=== PATIENT | female | born 1935 | race Hispanic/Latino ===

== ENCOUNTER 2017-05-08 18:09 | Emergency (ER) | payer OTHER ==
[~2017-05-08 18:09] MED LIST: OMEP20TA25 PO
[2017-05-08 19:36] LABS: BILIRUBIN,URINE Negative (NEGATIVE); COLOR,URINE Yellow (YELLOW); GLUCOSE, URINE (UA) Negative (NEGATIVE); KETONES,URINE Negative (NEGATIVE); LEUKOCYTE ESTERASE ,URINE Small (NEGATIVE); NITRATE,URINE Negative (NEGATIVE); OCCULT BLOOD,URINE Negative (NEGATIVE); PH,URINE 7.5 (5.0-8.0); PROTEIN,URINE Negative (NEGATIVE); UROBILINOGEN,URINE 0.2 mg/dL (0.2-1.0)
[2017-05-08 19:41] LABS: APPEARANCE,URINE CLEAR (CLEAR)
[2017-05-08 19:51] LABS: BACTERIA,URINE Moderate /HPF (None Seen); RBC,URINE None Seen /HPF (0-1); SQUAMOUS EPITHELIAL CELL,UR None Seen /LPF (0-2); WBC,URINE 0-1 /HPF (0-1)
[2017-05-08] MEDS ORDERED: LORAZEPAM 1 MG TABLET ONE (20:17)
== END 2017-05-08 23:27 | disposition home or self-care (01) ==
LOC: EDH 18:09
DX: I10 Essential (primary) hypertension (principal); F41.9 Anxiety disorder, unspecified
CPT/HCPCS: 81001; 93005

== ENCOUNTER 2017-05-14 10:16 | Inpatient (IN) | payer OTHER ==
[~2017-05-14] VITALS: Ht 149.9 cm; Wt 129.3 kg
[2017-05-14] MEDS: SODIUM CHLORIDE 0.9% 1000ML 1,000 ML IV SCH ×2 (08:23→18:11)
[2017-05-14 10:35] LABS: BASOPHILS % (AUTO) 0.2 % (0.0-5.0); EOSINOPHILS % (AUTO) 0.1 % (0.0-8.0); HEMATOCRIT 34.3 % (36-48); LYMPHOCYTES % (AUTO) 20.3 % (21.0-51.0); MEAN CORPUSCULAR HEMOGLOBIN 30.5 pg (27.0-33.0); MEAN CORPUSCULAR HGB CONC 35.5 g/dL (32.0-36.0); MEAN CORPUSCULAR VOLUME 85.9 fL (79-99); MONOCYTES % (AUTO) 8.1 % (3.0-13.0); NEUTROPHILS % (AUTO) 71.3 % (40.0-77.0); PLATELET COUNT (AUTO) 162 K/uL (130-400); RED CELL DISTRIBUTION WIDTH 12.6 % (11.0-15.5); WHITE BLOOD COUNT (AUTO) 6.7 K/uL (4.8-10.8)
[2017-05-14 10:47] LABS: ALBUMIN 3.9 g/dL (3.5-5.0); CREATININE 0.8 mg/dL (0.5-1.5); POTASSIUM 3.3 mmol/L (3.5-5.1); TOTAL PROTEIN, SERUM 7.5 g/dL (6.0-8.3)
[2017-05-14 10:49] LABS: APPEARANCE,URINE Cloudy (CLEAR); BILIRUBIN,URINE Negative (NEGATIVE); COLOR,URINE Yellow (YELLOW); GLUCOSE, URINE (UA) Negative (NEGATIVE); KETONES,URINE Negative (NEGATIVE); LEUKOCYTE ESTERASE ,URINE Moderate (NEGATIVE); NITRATE,URINE Positive (NEGATIVE); OCCULT BLOOD,URINE Negative (NEGATIVE); PH,URINE 7.5 (5.0-8.0); PROTEIN,URINE Negative (NEGATIVE); UROBILINOGEN,URINE 0.2 mg/dL (0.2-1.0)
[2017-05-14] MEDS ORDERED: SODIUM CHLORIDE 0.9% 1000ML 1,000 ML IV ONE ×2 (10:59→12:29)
[2017-05-14] MEDS ORDERED: CEFTRIAXONE SODIUM 1 GM ONE (11:00)
[2017-05-14 11:20] LABS: BACTERIA,URINE Many /HPF (None Seen)
[2017-05-14 11:21] LABS: RBC,URINE None Seen /HPF (0-1); SQUAMOUS EPITHELIAL CELL,UR 0-2 /LPF (0-2)
[2017-05-14] MEDS ORDERED: POTASSIUM BICARB/CIT AC 25 MEQ TABLET.EFF ONE (12:29)
[2017-05-14 16:00] VITALS: BP 140/65
[2017-05-14 20:00] VITALS: BP 139/61
[2017-05-15] VITALS (9 sets, daily range): BP systolic 137–186; BP diastolic 59–81
[2017-05-15] MEDS: SODIUM CHLORIDE 0.9% 1000ML 1,000 ML IV SCH (02:40)
[2017-05-15] MEDS ORDERED: LIDOCAINE HCL-MPF 1% 2ML VIAL IVP PRN (07:30)
[2017-05-15] MEDS ORDERED: POTASSIUM CHLORIDE 20MEQ/100ML 100 ML IV PRN (07:30)
[2017-05-15] MEDS: CEFTRIAXONE SODIUM 1 GM IVP SCH (08:23)
[2017-05-15] MEDS: AMLODIPINE BESYLATE 5 MG TAB PO SCH (08:24)
[2017-05-15] MEDS: LISINOPRIL 20 MG TABLET PO SCH (08:24)
[2017-05-15 08:33] LABS: CREATININE 0.8 mg/dL (0.5-1.5); POTASSIUM 3.5 mmol/L (3.5-5.1)
[2017-05-15] MEDS: POTASSIUM CHLORIDE 10% ELIXIR 20 MEQ/15 ML UDCUP PO PRN ×2 (10:37→21:42)
[2017-05-15] MEDS: GUAIFENESIN SUGAR-FREE 100 MG/5 ML UDCUP PO PRN (10:38)
[2017-05-15] MEDS ORDERED: AMLO5TAB2 PO (16:13)
[2017-05-15] MEDS ORDERED: LISI-613 PO (16:13)
[2017-05-15] MEDS: METOPROLOL TARTRATE 25 MG TAB PO SCH ×2 (17:46→21:42)
[2017-05-16] MEDS: GUAIFENESIN SUGAR-FREE 100 MG/5 ML UDCUP PO PRN ×3 (01:15→21:08)
[2017-05-16 03:15] VITALS: BP 145/57
[2017-05-16] MEDS: ACETAMINOPHEN 325 MG TAB PO PRN ×2 (04:23→14:27)
[2017-05-16 04:52] LABS: CREATININE 0.8 mg/dL (0.5-1.5); POTASSIUM 3.5 mmol/L (3.5-5.1)
[2017-05-16 08:00] VITALS: BP 145/54
[2017-05-16] MEDS: LISINOPRIL 20 MG TABLET PO SCH ×3 (08:57→13:36)
[2017-05-16] MEDS: METOPROLOL TARTRATE 25 MG TAB PO SCH ×2 (08:58→21:06)
[2017-05-16] MEDS: CEFTRIAXONE SODIUM 1 GM IVP SCH (08:58)
[2017-05-16] MEDS: AMLODIPINE BESYLATE 5 MG TAB PO SCH ×2 (08:58→08:59)
[2017-05-16 12:00] VITALS: BP 158/56
[2017-05-16 16:00] VITALS: BP_SYST 114; BP_SYST 155; BP_DIAS 60; BP_DIAS 71
[2017-05-16] MEDS ORDERED: POTASSIUM CHLORIDE 20 MEQ ERTAB PO ONE (17:32)
[2017-05-16] MEDS: POTASSIUM CHLORIDE 20 MEQ ERTAB PO PRN (17:51)
[2017-05-16 20:00] VITALS: BP 143/58
[2017-05-16 23:46] VITALS: BP 143/63
[2017-05-17 03:55] VITALS: BP 160/63
[2017-05-17] MEDS: POTASSIUM CHLORIDE 20 MEQ ERTAB PO PRN (06:42)
[2017-05-17 08:00] VITALS: BP 150/58
[2017-05-17] MEDS: CEFTRIAXONE SODIUM 1 GM IVP SCH (11:01)
[2017-05-17] MEDS: METOPROLOL TARTRATE 25 MG TAB PO SCH ×2 (11:02→21:06)
[2017-05-17] MEDS: ACETAMINOPHEN 325 MG TAB PO PRN (11:58)
[2017-05-17 12:00] VITALS: BP 146/61
[2017-05-17 14:49] LABS: CREATININE 0.9 mg/dL (0.5-1.5); POTASSIUM 3.4 mmol/L (3.5-5.1)
[2017-05-17 16:00] VITALS: BP 145/68
[2017-05-17 20:00] VITALS: BP 166/66
[2017-05-17 23:41] VITALS: BP 142/61
[2017-05-18] MEDS: ACETAMINOPHEN 325 MG TAB PO PRN (00:24)
[2017-05-18 03:55] VITALS: BP 146/53
[2017-05-18 08:00] VITALS: BP 134/53
[2017-05-18] MEDS: CEFTRIAXONE SODIUM 1 GM IVP SCH (09:32)
[2017-05-18] MEDS: METOPROLOL TARTRATE 25 MG TAB PO SCH ×2 (09:36→20:18)
[2017-05-18 12:00] VITALS: BP 159/62
[2017-05-18] MEDS: LISINOPRIL 20 MG TABLET PO SCH (13:36)
[2017-05-18 16:00] VITALS: BP 154/104
[2017-05-18 20:00] VITALS: BP 136/64
[2017-05-18] MEDS ORDERED: SODIUM CHLORIDE 1,000 MG TAB PO SCH (22:15)
[2017-05-18] MEDS: ZOSYN 3.375GM+NS 50ML 50 ML IV SCH (23:23)
[2017-05-18 23:40] VITALS: BP 149/60
[2017-05-19 03:37] VITALS: BP 136/55
[2017-05-19 04:59] LABS: CREATININE 0.9 mg/dL (0.5-1.5); POTASSIUM 3.9 mmol/L (3.5-5.1)
[2017-05-19] MEDS: ZOSYN 3.375GM+NS 50ML 50 ML IV SCH (06:14)
[2017-05-19 08:00] VITALS: BP 167/75
[2017-05-19] MEDS ORDERED: PANTOPRAZOLE SODIUM 40 MG TABLET.DR PO SCH (09:00)
[2017-05-19] MEDS ORDERED: SODIUM CHLORIDE 1,000 MG TAB PO SCH (09:00)
[2017-05-19] MEDS ORDERED: ENOXAPARIN SODIUM 30 MG/0.3 ML SQ SCH (09:00)
[2017-05-19] MEDS: LISINOPRIL 20 MG TABLET PO SCH (09:01)
[2017-05-19] MEDS: METOPROLOL TARTRATE 25 MG TAB PO SCH (09:01)
[2017-05-19 11:00] VITALS: BP 138/59
[2017-05-19 16:00] VITALS: BP 142/58
== END 2017-05-19 18:45 | disposition home or self-care (01) | DRG 693 ==
LOC: EDH 10:16 → EDHIP 11:10 → OBSVTOIN 11:10 → 3CH 15:44
PROVIDERS: ADMIT Internal Medicine; ATTEND Internal Medicine
DX: N13.30 Unspecified hydronephrosis (principal); G93.40 Encephalopathy, unspecified; E87.8 Other disorders of electrolyte and fluid balance, not elsewhere classified; E87.1 Hypo-osmolality and hyponatremia; N39.0 Urinary tract infection, site not specified; I10 Essential (primary) hypertension; R05 Cough; Z16.30 Resistance to unspecified antimicrobial drugs; F41.9 Anxiety disorder, unspecified; Z79.899 Other long term (current) drug therapy; Z28.21 Immunization not carried out because of patient refusal
CPT/HCPCS: 36415; 71045; 74176; 80048; 80053; 81001; 82948; 83690; 85025; 87040; 87088; 87186; 93005; A4218; J0696; J1650; J2543; J3480; J3490; J7030

== ENCOUNTER 2019-08-23 16:19 | Emergency (ER) | payer OTHER ==
[~2019-08-23 16:19] MED LIST changes: +AMLO5TAB9 PO; +LISI-613 PO
[2019-08-23 18:01] LABS: BASOPHILS % (AUTO) 0.4 % (0.0-5.0); EOSINOPHILS % (AUTO) 1.5 % (0.0-8.0); HEMATOCRIT 32.4 % (36-48); LYMPHOCYTES % (AUTO) 17.2 % (21.0-51.0); MEAN CORPUSCULAR HEMOGLOBIN 30.9 pg (27.0-33.0); MEAN CORPUSCULAR HGB CONC 33.6 g/dL (32.0-36.0); MEAN CORPUSCULAR VOLUME 91.8 fL (79-99); MONOCYTES % (AUTO) 10.9 % (3.0-13.0); NEUTROPHILS % (AUTO) 69.7 % (40.0-77.0); PLATELET COUNT (AUTO) 177 K/uL (130-400); RED BLOOD CELL COUNT(AUTO) 3.53 MIL/uL (4.00-5.50); RED CELL DISTRIBUTION WIDTH 13.6 % (11.0-15.5); WHITE BLOOD COUNT (AUTO) 9.2 K/uL (4.8-10.8)
[2019-08-23 18:11] LABS: CREATININE 1.1 mg/dL (0.5-1.5); POTASSIUM 3.5 mmol/L (3.5-5.1)
[2019-08-23 18:16] LABS: ALBUMIN 3.1 g/dL (3.5-5.0); BILIRUBIN,TOTAL 0.4 mg/dL (0.2-1.0); TOTAL PROTEIN, SERUM 6.8 g/dL (6.0-8.3)
[2019-08-23 18:22] LABS: APPEARANCE,URINE Cloudy (CLEAR); BILIRUBIN,URINE Negative (NEGATIVE); COLOR,URINE Yellow (YELLOW); GLUCOSE, URINE (UA) Negative (NEGATIVE); KETONES,URINE Negative (NEGATIVE); LEUKOCYTE ESTERASE ,URINE Large (NEGATIVE); NITRATE,URINE Negative (NEGATIVE); OCCULT BLOOD,URINE Moderate (NEGATIVE); PH,URINE 6.5 (5.0-8.0); PROTEIN,URINE POS 1+ mg/dL (NEGATIVE); UROBILINOGEN,URINE 0.2 mg/dL (0.2-1.0)
[2019-08-23 18:29] LABS: B-TYPE NATRIURETIC PEPTIDE 176 pg/mL (0-100)
[2019-08-23 18:45] LABS: BACTERIA,URINE Few /HPF (None Seen); MUCUS,URINE Few LPF (None Seen); SQUAMOUS EPITHELIAL CELL,UR 0-2 /HPF (0-2)
[2019-08-23] MEDS ORDERED: CEFTRIAXONE SODIUM 1 GM ONE (19:29)
== END 2019-08-23 20:45 | disposition home or self-care (01) ==
LOC: EDH 16:19
DX: N39.0 Urinary tract infection, site not specified (principal); L03.116 Cellulitis of left lower limb; L03.115 Cellulitis of right lower limb; M54.5 Low back pain; I10 Essential (primary) hypertension
CPT/HCPCS: 36415; 74176; 80053; 81001; 82150; 83690; 83880; 84484; 85025; 87077; 87088; 87186; 93005; 96374; 99285; J0696

== ENCOUNTER 2019-08-29 14:35 | Emergency (ER) | payer OTHER ==
[2019-08-29 15:24] LABS: BASOPHILS % (AUTO) 0.7 % (0.0-5.0); EOSINOPHILS % (AUTO) 2.4 % (0.0-8.0); HEMATOCRIT 31.8 % (36-48); LYMPHOCYTES % (AUTO) 28.1 % (21.0-51.0); MEAN CORPUSCULAR HEMOGLOBIN 30.6 pg (27.0-33.0); MEAN CORPUSCULAR HGB CONC 33.3 g/dL (32.0-36.0); MEAN CORPUSCULAR VOLUME 91.9 fL (79-99); MONOCYTES % (AUTO) 13.6 % (3.0-13.0); PLATELET COUNT (AUTO) 185 K/uL (130-400); RED BLOOD CELL COUNT(AUTO) 3.46 MIL/uL (4.00-5.50); RED CELL DISTRIBUTION WIDTH 13.4 % (11.0-15.5); WHITE BLOOD COUNT (AUTO) 5.9 K/uL (4.8-10.8)
[2019-08-29 15:26] LABS: APPEARANCE,URINE CLEAR (CLEAR); BILIRUBIN,URINE NEGATIVE (NEGATIVE); COLOR,URINE YELLOW (YELLOW); GLUCOSE, URINE (UA) NEGATIVE (NEGATIVE); KETONES,URINE NEGATIVE (NEGATIVE); LEUKOCYTE ESTERASE ,URINE NEGATIVE (NEGATIVE); NITRATE,URINE NEGATIVE (NEGATIVE); OCCULT BLOOD,URINE NEGATIVE (NEGATIVE); PROTEIN,URINE TRACE mg/dL (NEGATIVE); UROBILINOGEN,URINE 0.2 mg/dL (0.2-1.0)
[2019-08-29 15:34] LABS: BACTERIA,URINE Rare /HPF (None Seen); SQUAMOUS EPITHELIAL CELL,UR 0-2 /HPF (0-2); URIC ACID CRYSTALS,URINE Few /LPF (None Seen)
[2019-08-29 15:39] LABS: INR 0.92 (0.85-1.15); PARTIAL THROMBOPLASTIN TIME 27.1 SEC (26.3-35.5)
[2019-08-29 15:40] LABS: POTASSIUM 3.7 mmol/L (3.5-5.1)
[2019-08-29 15:43] LABS: ALBUMIN 3.6 g/dL (3.5-5.0); BILIRUBIN,TOTAL 0.5 mg/dL (0.2-1.0); TOTAL PROTEIN, SERUM 7.2 g/dL (6.0-8.3)
== END 2019-08-29 16:28 | disposition home or self-care (01) ==
LOC: EDH 14:35
DX: G89.29 Other chronic pain (principal); R10.31 Right lower quadrant pain; F41.1 Generalized anxiety disorder; L03.116 Cellulitis of left lower limb; I10 Essential (primary) hypertension; Z90.49 Acquired absence of other specified parts of digestive tract; Z90.710 Acquired absence of both cervix and uterus
CPT/HCPCS: 36415; 71045; 80053; 81001; 82550; 83690; 84484; 85025; 85610; 85730; 93005

== ENCOUNTER 2021-10-23 14:16 | Inpatient (IN) | payer OTHER ==
[~2021-10-23] VITALS: Ht 149.9 cm; Wt 72.6 kg
[~2021-10-23 14:16] MED LIST changes: +AMLO-257 PO; -AMLO5TAB9 PO; -LISI-613 PO; +LISI20TA24 PO; +OMEP20TA20 PO; -OMEP20TA25 PO
[2021-10-23 14:53] LABS: BASOPHILS % (AUTO) 0.3 % (0.0-5.0); EOSINOPHILS % (AUTO) 0.5 % (0.0-8.0); HEMATOCRIT 29.8 % (36-48); LYMPHOCYTES % (AUTO) 12.8 % (21.0-51.0); MEAN CORPUSCULAR HEMOGLOBIN 27.6 pg (27.0-33.0); MEAN CORPUSCULAR HGB CONC 32.2 g/dL (32.0-36.0); MEAN CORPUSCULAR VOLUME 85.6 fL (79-99); MONOCYTES % (AUTO) 9.9 % (3.0-13.0); NEUTROPHILS % (AUTO) 76.2 % (40.0-77.0); PLATELET COUNT (AUTO) 182 K/uL (130-400); RED BLOOD CELL COUNT(AUTO) 3.48 MIL/uL (4.00-5.50); RED CELL DISTRIBUTION WIDTH 14.9 % (11.0-15.5)
[2021-10-23] MEDS ORDERED: MORPHINE 4 MG SYG ONE (14:53)
[2021-10-23] MEDS ORDERED: ONDANSETRON 4MG INJ ONE (14:53)
[2021-10-23 14:59] LABS: INR 0.94 (0.85-1.15); PROTHROMBIN TIME 10.3 SEC (9.6-11.6)
[2021-10-23 15:00] LABS: PARTIAL THROMBOPLASTIN TIME 24.3 SEC (26.3-35.5)
[2021-10-23 15:05] LABS: CREATININE 1.1 mg/dL (0.5-1.5); POTASSIUM 3.8 mmol/L (3.5-5.1)
[2021-10-23 15:10] LABS: ALBUMIN 3.6 g/dL (3.5-5.0); BILIRUBIN,TOTAL 0.4 mg/dL (0.2-1.0)
[2021-10-23 15:18] LABS: BILIRUBIN,URINE NEGATIVE (NEGATIVE); COLOR,URINE YELLOW (YELLOW); GLUCOSE, URINE (UA) NEGATIVE (NEGATIVE); KETONES,URINE NEGATIVE (NEGATIVE); LEUKOCYTE ESTERASE ,URINE TRACE (NEGATIVE); NITRATE,URINE POSITIVE (NEGATIVE); OCCULT BLOOD,URINE TRACE-INTACT (NEGATIVE); PH,URINE 7.5 (5.0-8.0); PROTEIN,URINE 30 mg/dL (NEGATIVE); UROBILINOGEN,URINE 0.2 mg/dL (0.2-1.0)
[2021-10-23 15:21] LABS: APPEARANCE,URINE CLOUDY (CLEAR)
[2021-10-23 15:27] LABS: BACTERIA,URINE Many /HPF (None Seen); SQUAMOUS EPITHELIAL CELL,UR None Seen /HPF (0-2)
[2021-10-23] MEDS ORDERED: ONDANSETRON 4MG INJ IVP ONE (15:30)
[2021-10-23] MEDS ORDERED: MORPHINE 4 MG SYG IVP ONE (15:30)
[2021-10-23] MEDS ORDERED: CLON0.5T4 PO (16:56)
[2021-10-23] MEDS ORDERED: BUSP10TA3 PO (16:57)
[2021-10-23] MEDS ORDERED: PARO10TA71 PO (16:57)
[2021-10-23] MEDS ORDERED: MAGNESIUM 2GM PREMIX 50ML 50 ML IV PRN (18:00)
[2021-10-23] MEDS ORDERED: ONDANSETRON 4MG INJ IVP PRN (18:00)
[2021-10-23] MEDS ORDERED: POTASSIUM CHLORIDE 10% ELIXIR 20 MEQ/15 ML UDCUP PO PRN (18:00)
[2021-10-23] MEDS ORDERED: ACETAMINOPHEN 650 MG SUPPOSITORY RC PRN (18:00)
[2021-10-23] MEDS ORDERED: DEXTROSE 50%-WATER 50 ML DISP.SYRIN IV PRN (18:00)
[2021-10-23] MEDS ORDERED: CLONIDINE HCL 0.1 MG TABLET PO PRN (18:00)
[2021-10-23] MEDS ORDERED: GLUCAGON 1MG KIT 1 MG ML IM PRN (18:00)
[2021-10-23] MEDS ORDERED: POTASSIUM CHLORIDE 20MEQ/100ML 100 ML IV PRN ×2 (18:00)
[2021-10-23] MEDS ORDERED: KCL 20 MEQ ERTAB PO PRN (18:00)
[2021-10-23] MEDS ORDERED: LIDOCAINE HCL-MPF 1% 2ML VIAL IV PRN ×2 (18:00)
[2021-10-23] MEDS: LACTATED RINGERS 1000ML 1,000 ML IV SCH (18:08)
[2021-10-23] MEDS ORDERED: MEPERIDINE-PF 25 MG/ML SYG ONE (18:23)
[2021-10-23] MEDS ORDERED: TETANUS/DIPHTHERIA TOXOID [ADULT] 0.5 ML VIAL IM ONE (18:30)
[2021-10-23] MEDS ORDERED: MEPERIDINE-PF 25 MG/ML SYG IVP ONE (18:30)
[2021-10-23] MEDS ORDERED: ENOXAPARIN SODIUM 40 MG/0.4 ML SYRINGE SQ ONE (19:00)
[2021-10-23] MEDS ORDERED: HYDROMORPHONE 0.5 MG SYG (0.5MG/0.5ML) IVP PRN (20:30)
[2021-10-23] MEDS ORDERED: CEFTRIAXONE 1G VIAL IVP ONE (20:30)
[2021-10-23] MEDS: CLONAZEPAM 0.5 MG TABLET PO SCH (21:00)
[2021-10-23] MEDS: HYDROMORPHONE 0.5 MG SYG (0.5MG/0.5ML) IVP PRN (23:20)
[2021-10-24] MEDS: LACTATED RINGERS 1000ML 1,000 ML IV SCH ×2 (01:57→11:11)
[2021-10-24] MEDS: HYDROMORPHONE 0.5 MG SYG (0.5MG/0.5ML) IVP PRN ×4 (05:59→17:59)
[2021-10-24 06:00] VITALS: BP 139/62
[2021-10-24 06:52] LABS: BASOPHILS % (AUTO) 0.4 % (0.0-5.0); EOSINOPHILS % (AUTO) 1.1 % (0.0-8.0); HEMATOCRIT 26.6 % (36-48); LYMPHOCYTES % (AUTO) 18.2 % (21.0-51.0); MEAN CORPUSCULAR HGB CONC 31.2 g/dL (32.0-36.0); MEAN CORPUSCULAR VOLUME 86.6 fL (79-99); MONOCYTES % (AUTO) 13.9 % (3.0-13.0); NEUTROPHILS % (AUTO) 66.1 % (40.0-77.0); PLATELET COUNT (AUTO) 156 K/uL (130-400); RED BLOOD CELL COUNT(AUTO) 3.07 MIL/uL (4.00-5.50); RED CELL DISTRIBUTION WIDTH 14.9 % (11.0-15.5); WHITE BLOOD COUNT (AUTO) 7.1 K/uL (4.8-10.8)
[2021-10-24 07:00] LABS: HEMOGLOBIN A1C 6.8 % (4.0-6.0)
[2021-10-24 07:16] LABS: PHOSPHORUS 3.6 mg/dL (2.5-4.9); POTASSIUM 4.4 mmol/L (3.5-5.1); THYROID STIMULATING HORMONE 4.88 uIU/mL (0.36-3.74)
[2021-10-24 08:00] VITALS: BP 137/62
[2021-10-24] MEDS: CLONAZEPAM 0.5 MG TABLET PO SCH ×2 (11:58→22:15)
[2021-10-24] MEDS: PANTOPRAZOLE 40 MG TAB DR PO SCH (11:58)
[2021-10-24] MEDS: POLYETHYLENE GLYCOL 3350 17 GM POWD.PACK PO SCH (11:58)
[2021-10-24] MEDS: ENOXAPARIN SODIUM 40 MG/0.4 ML SYRINGE SQ SCH (11:59)
[2021-10-24] MEDS: AMLODIPINE 5 MG TAB PO SCH (11:59)
[2021-10-24] MEDS: LISINOPRIL 20 MG TABLET PO SCH (11:59)
[2021-10-24 12:00] VITALS: BP 169/66
[2021-10-24] MEDS: ACETAMINOPHEN 325 MG TAB PO PRN (13:41)
[2021-10-24 16:00] VITALS: BP 151/63
[2021-10-24] MEDS ORDERED: FUROSEMIDE 20MG VIAL ONE (17:56)
[2021-10-24] MEDS ORDERED: FUROSEMIDE 20MG VIAL IV ONE (18:00)
[2021-10-24] MEDS ORDERED: ACETAMINOPHEN WITH CODEINE 1 TAB TAB PO PRN (18:00)
[2021-10-24] MEDS ORDERED: KETOROLAC 30MG VIAL (30MG/ML) IM ONE (19:30)
[2021-10-24 21:04] VITALS: BP 150/63
[2021-10-24] MEDS: HYDROMORPHONE 1 MG INJ IVP PRN (22:33)
[2021-10-25] VITALS (26 sets, daily range): BP systolic 124–201; BP diastolic 43–85
[2021-10-25] MEDS: LEVOTHYROXINE 50 MCG TABLET PO SCH (00:09)
[2021-10-25] MEDS: POLYETHYLENE GLYCOL 3350 17 GM POWD.PACK PO SCH (09:00)
[2021-10-25] MEDS: PANTOPRAZOLE 40 MG TAB DR PO SCH (09:00)
[2021-10-25] MEDS: AMLODIPINE 5 MG TAB PO SCH (09:00)
[2021-10-25] MEDS: ENOXAPARIN SODIUM 40 MG/0.4 ML SYRINGE SQ SCH (09:00)
[2021-10-25] MEDS: CLONAZEPAM 0.5 MG TABLET PO SCH ×2 (09:00→21:03)
[2021-10-25] MEDS: LISINOPRIL 20 MG TABLET PO SCH (09:00)
[2021-10-25] MEDS ORDERED: ROPIVACAINE 0.5% 5MG/ML 30ML IJ ONE ×2 (11:18→13:11)
[2021-10-25] MEDS ORDERED: KETAMINE 50MG/ML SYRINGE 50 MG/ML DISP.SYRIN IV ONE (11:19)
[2021-10-25] MEDS ORDERED: PROPOFOL 10 MG/ML 20ML VIAL IV ONE (11:20)
[2021-10-25] MEDS ORDERED: SUCCINYLCHOLINE CHLORIDE 20 MG/ML 10 ML VIAL ONE (11:20)
[2021-10-25] MEDS ORDERED: LIDOCAINE PF 100MG/5ML (2%) SYRINGE 5ML ONE (11:20)
[2021-10-25] MEDS ORDERED: ROCURONIUM 10MG/1ML SYR 10 MG/ML ML ONE (11:21)
[2021-10-25] MEDS ORDERED: TRANEXAMIC ACID 1000MG/10ML ONE (11:22)
[2021-10-25] MEDS ORDERED: CEFAZOLIN SODIUM 1 GM VIAL ONE (11:22)
[2021-10-25] MEDS ORDERED: DEXAMETHASONE SOD PHOSPHATE 10MG/ML 1ML VIAL ONE (11:31)
[2021-10-25] MEDS ORDERED: TRANEXAMIC ACID 1000MG/10ML IV ONE (12:03)
[2021-10-25] MEDS ORDERED: CEFAZOLIN SODIUM 3 GM VIAL IV ONE (12:03)
[2021-10-25] MEDS ORDERED: FENTANYL CITRATE PF 50 MCG/1 ML 2ML VIAL ONE (12:04)
[2021-10-25] MEDS ORDERED: GLYCOPYRROLATE 1 MG/5 ML SYRINGE ONE (12:55)
[2021-10-25] MEDS ORDERED: NEOSTIGMINE 5MG/5ML SYR IV ONE (12:55)
[2021-10-25] MEDS ORDERED: ESMOLOL HCL 10 MG/ML 10 ML VIAL ONE (12:58)
[2021-10-25] MEDS ORDERED: VANCOMYCIN 1G VIAL ONE (12:59)
[2021-10-25] MEDS ORDERED: ONDANSETRON 4MG INJ ONE (13:01)
[2021-10-25] MEDS ORDERED: 0.9%NACL 10ML VIAL ONE (13:09)
[2021-10-25] MEDS: CEFAZOLIN SODIUM 1 GM VIAL IVP SCH ×2 (13:30→22:00)
[2021-10-25] MEDS ORDERED: HYDRALAZINE 20MG/ML VIAL ONE (13:44)
[2021-10-25] MEDS ORDERED: LABETALOL 20MG VIAL IV ONE (14:01)
[2021-10-25] MEDS: HYDROMORPHONE 1 MG INJ IVP PRN (18:31)
[2021-10-25] MEDS: CEFTRIAXONE 1G VIAL IVP SCH (20:06)
[2021-10-25] MEDS: IPRATROPIUM/ALBUTEROL SULFATE 3 ML SOLUTION IH SCH (23:44)
[2021-10-26] VITALS: BP 144/57
[2021-10-26] MEDS: ACETAMINOPHEN WITH CODEINE 1 TAB TAB PO PRN ×2 (02:13→18:37)
[2021-10-26 02:20] LABS: HEMATOCRIT 21.9 % (36-48); MEAN CORPUSCULAR HEMOGLOBIN 27.2 pg (27.0-33.0); MEAN CORPUSCULAR HGB CONC 31.5 g/dL (32.0-36.0); MEAN CORPUSCULAR VOLUME 86.2 fL (79-99); RED BLOOD CELL COUNT(AUTO) 2.54 MIL/uL (4.00-5.50); RED CELL DISTRIBUTION WIDTH 14.9 % (11.0-15.5); WHITE BLOOD COUNT (AUTO) 9.8 K/uL (4.8-10.8)
[2021-10-26 02:27] LABS: CREATININE 1.3 mg/dL (0.5-1.5)
[2021-10-26 04:50] VITALS: BP 146/60
[2021-10-26] MEDS ORDERED: IOHEXOL 350 MG/ML 100ML INFUS..BTL IV ONE (05:32)
[2021-10-26] MEDS: LEVOTHYROXINE 50 MCG TABLET PO SCH (06:30)
[2021-10-26] MEDS: IPRATROPIUM/ALBUTEROL SULFATE 3 ML SOLUTION IH SCH ×3 (06:51→18:21)
[2021-10-26 08:00] VITALS: BP 149/69
[2021-10-26] MEDS: SODIUM CHLORIDE 1,000 MG TAB PO SCH ×3 (11:02→20:53)
[2021-10-26] MEDS: ENOXAPARIN SODIUM 40 MG/0.4 ML SYRINGE SQ SCH (11:03)
[2021-10-26] MEDS: PANTOPRAZOLE 40 MG TAB DR PO SCH (11:03)
[2021-10-26] MEDS: LISINOPRIL 20 MG TABLET PO SCH (11:04)
[2021-10-26] MEDS: CLONAZEPAM 0.5 MG TABLET PO SCH ×2 (11:04→22:21)
[2021-10-26] MEDS: POLYETHYLENE GLYCOL 3350 17 GM POWD.PACK PO SCH (11:04)
[2021-10-26] MEDS: AMLODIPINE 5 MG TAB PO SCH (11:04)
[2021-10-26] MEDS: LACTATED RINGERS 1000ML 1,000 ML IV SCH ×2 (11:13→11:27)
[2021-10-26] MEDS: HYDROMORPHONE 1 MG INJ IVP PRN ×2 (11:17→20:53)
[2021-10-26 12:00] VITALS: BP 123/54
[2021-10-26] MEDS ORDERED: LORAZEPAM 1 MG TABLET PO SCH (14:30)
[2021-10-26 16:00] VITALS: BP 160/57
[2021-10-26 19:31] LABS: HEMATOCRIT 25.8 % (36-48); MEAN CORPUSCULAR HEMOGLOBIN 28.9 pg (27.0-33.0); MEAN CORPUSCULAR HGB CONC 32.9 g/dL (32.0-36.0); MEAN CORPUSCULAR VOLUME 87.8 fL (79-99); RED BLOOD CELL COUNT(AUTO) 2.94 MIL/uL (4.00-5.50); RED CELL DISTRIBUTION WIDTH 15.5 % (11.0-15.5); WHITE BLOOD COUNT (AUTO) 11.1 K/uL (4.8-10.8)
[2021-10-26 20:00] VITALS: BP 167/67
[2021-10-26] MEDS: CEFTRIAXONE 1G VIAL IVP SCH (21:09)
[2021-10-27] MEDS: LEVOTHYROXINE 50 MCG TABLET PO SCH (06:30)
[2021-10-27 08:00] VITALS: BP 150/50
[2021-10-27] MEDS: CLONAZEPAM 0.5 MG TABLET PO SCH ×2 (08:02→21:28)
[2021-10-27] MEDS: PANTOPRAZOLE 40 MG TAB DR PO SCH (08:02)
[2021-10-27] MEDS: AMLODIPINE 5 MG TAB PO SCH (08:02)
[2021-10-27] MEDS: LISINOPRIL 20 MG TABLET PO SCH (08:03)
[2021-10-27] MEDS: POLYETHYLENE GLYCOL 3350 17 GM POWD.PACK PO SCH (08:03)
[2021-10-27] MEDS: ENOXAPARIN SODIUM 40 MG/0.4 ML SYRINGE SQ SCH (08:05)
[2021-10-27] MEDS: SODIUM CHLORIDE 1,000 MG TAB PO SCH ×3 (08:14→21:28)
[2021-10-27] MEDS: ACETAMINOPHEN WITH CODEINE 1 TAB TAB PO PRN ×2 (10:24→18:46)
[2021-10-27 10:47] LABS: HEMATOCRIT 24.2 % (36-48); MEAN CORPUSCULAR HEMOGLOBIN 28.6 pg (27.0-33.0); MEAN CORPUSCULAR HGB CONC 31.8 g/dL (32.0-36.0); RED BLOOD CELL COUNT(AUTO) 2.69 MIL/uL (4.00-5.50); RED CELL DISTRIBUTION WIDTH 15.5 % (11.0-15.5); WHITE BLOOD COUNT (AUTO) 9.2 K/uL (4.8-10.8)
[2021-10-27] MEDS: IPRATROPIUM/ALBUTEROL SULFATE 3 ML SOLUTION IH SCH ×2 (11:05→19:19)
[2021-10-27 11:06] LABS: CREATININE 0.9 mg/dL (0.5-1.5); POTASSIUM 4.4 mmol/L (3.5-5.1)
[2021-10-27] MEDS: LACTATED RINGERS 1000ML 1,000 ML IV SCH (11:11)
[2021-10-27 12:00] VITALS: BP 141/57
[2021-10-27] MEDS: ACETAMINOPHEN 325 MG TAB PO PRN (13:31)
[2021-10-27 16:00] VITALS: BP 137/54
[2021-10-27] MEDS ORDERED: LACTULOSE 20 GM/30 ML UDCUP PO ONE (17:40)
[2021-10-27 20:00] VITALS: BP 163/73
[2021-10-27] MEDS: CEFTRIAXONE 1G VIAL IVP SCH (21:28)
[2021-10-28 00:13] VITALS: BP 162/73
[2021-10-28] MEDS: IPRATROPIUM/ALBUTEROL SULFATE 3 ML SOLUTION IH SCH ×4 (00:22→19:46)
[2021-10-28 05:12] VITALS: BP 153/79
[2021-10-28 05:13] LABS: BASOPHILS % (AUTO) 0.2 % (0.0-5.0); EOSINOPHILS % (AUTO) 1.7 % (0.0-8.0); HEMATOCRIT 24.1 % (36-48); MEAN CORPUSCULAR HEMOGLOBIN 27.9 pg (27.0-33.0); MEAN CORPUSCULAR HGB CONC 31.1 g/dL (32.0-36.0); MEAN CORPUSCULAR VOLUME 89.6 fL (79-99); MONOCYTES % (AUTO) 13.3 % (3.0-13.0); NEUTROPHILS % (AUTO) 64.2 % (40.0-77.0); PLATELET COUNT (AUTO) 162 K/uL (130-400); RED BLOOD CELL COUNT(AUTO) 2.69 MIL/uL (4.00-5.50); RED CELL DISTRIBUTION WIDTH 15.8 % (11.0-15.5); WHITE BLOOD COUNT (AUTO) 6.5 K/uL (4.8-10.8)
[2021-10-28 05:30] LABS: ALBUMIN 2.2 g/dL (3.5-5.0); BILIRUBIN,TOTAL 0.4 mg/dL (0.2-1.0); POTASSIUM 3.7 mmol/L (3.5-5.1)
[2021-10-28] MEDS: LEVOTHYROXINE 50 MCG TABLET PO SCH (06:30)
[2021-10-28 08:09] VITALS: BP 169/61
[2021-10-28] MEDS: ACETAMINOPHEN WITH CODEINE 1 TAB TAB PO PRN (09:31)
[2021-10-28] MEDS: POLYETHYLENE GLYCOL 3350 17 GM POWD.PACK PO SCH (09:31)
[2021-10-28] MEDS: CLONAZEPAM 0.5 MG TABLET PO SCH ×2 (09:31→20:43)
[2021-10-28] MEDS: SODIUM CHLORIDE 1,000 MG TAB PO SCH ×3 (09:31→20:43)
[2021-10-28] MEDS: AMLODIPINE 5 MG TAB PO SCH (09:31)
[2021-10-28] MEDS: ENOXAPARIN SODIUM 40 MG/0.4 ML SYRINGE SQ SCH (09:32)
[2021-10-28] MEDS: PANTOPRAZOLE 40 MG TAB DR PO SCH (09:32)
[2021-10-28] MEDS: LISINOPRIL 20 MG TABLET PO SCH (09:32)
[2021-10-28 11:16] VITALS: BP 166/67
[2021-10-28] MEDS: LACTATED RINGERS 1000ML 1,000 ML IV SCH (12:00)
[2021-10-28] MEDS ORDERED: DIPHENHYDRAMINE HCL 25 MG CAPSULE ONE (12:57)
[2021-10-28] MEDS: DIPHENHYDRAMINE HCL 25 MG CAPSULE PO PRN (13:48)
[2021-10-28] MEDS: ACETAMINOPHEN 325 MG TAB PO PRN (14:14)
[2021-10-28 16:54] VITALS: BP 193/71
[2021-10-28] MEDS: ALPRAZOLAM 0.25 MG TABLET PO PRN (17:05)
[2021-10-28] MEDS ORDERED: LACTULOSE 20 GM/30 ML UDCUP PO ONE (17:55)
[2021-10-28 19:00] VITALS: BP 134/60
[2021-10-28] MEDS: CEFTRIAXONE 1G VIAL IVP SCH (20:43)
[2021-10-29] VITALS: BP 180/73
[2021-10-29 04:00] VITALS: BP 155/67
[2021-10-29] MEDS: DIPHENHYDRAMINE HCL 25 MG CAPSULE PO PRN ×3 (04:05→19:53)
[2021-10-29] MEDS: ACETAMINOPHEN WITH CODEINE 1 TAB TAB PO PRN ×2 (04:06→17:30)
[2021-10-29 04:57] LABS: ALBUMIN 2.1 g/dL (3.5-5.0); BILIRUBIN,TOTAL 0.3 mg/dL (0.2-1.0); CREATININE 0.9 mg/dL (0.5-1.5); MAGNESIUM 1.9 mg/dL (1.80-2.40); POTASSIUM 4.1 mmol/L (3.5-5.1); TOTAL PROTEIN, SERUM 5.9 g/dL (6.0-8.3)
[2021-10-29 05:27] LABS: BASOPHILS % (AUTO) 0.4 % (0.0-5.0); EOSINOPHILS % (AUTO) 4.3 % (0.0-8.0); HEMATOCRIT 23.8 % (36-48); LYMPHOCYTES % (AUTO) 23.1 % (21.0-51.0); MEAN CORPUSCULAR HEMOGLOBIN 28.3 pg (27.0-33.0); MEAN CORPUSCULAR HGB CONC 31.5 g/dL (32.0-36.0); MEAN CORPUSCULAR VOLUME 89.8 fL (79-99); MONOCYTES % (AUTO) 13.2 % (3.0-13.0); NEUTROPHILS % (AUTO) 58.6 % (40.0-77.0); PLATELET COUNT (AUTO) 167 K/uL (130-400); RED BLOOD CELL COUNT(AUTO) 2.65 MIL/uL (4.00-5.50); RED CELL DISTRIBUTION WIDTH 15.6 % (11.0-15.5); WHITE BLOOD COUNT (AUTO) 5.5 K/uL (4.8-10.8)
[2021-10-29] MEDS: IPRATROPIUM/ALBUTEROL SULFATE 3 ML SOLUTION IH SCH ×4 (06:22→19:15)
[2021-10-29] MEDS: LEVOTHYROXINE 50 MCG TABLET PO SCH (07:24)
[2021-10-29 08:04] VITALS: BP 143/63
[2021-10-29] MEDS: ALPRAZOLAM 0.25 MG TABLET PO PRN (09:19)
[2021-10-29] MEDS: CLONAZEPAM 0.5 MG TABLET PO SCH ×2 (09:20→19:52)
[2021-10-29] MEDS: LISINOPRIL 20 MG TABLET PO SCH (09:20)
[2021-10-29] MEDS: AMLODIPINE 5 MG TAB PO SCH (09:20)
[2021-10-29] MEDS: SODIUM CHLORIDE 1,000 MG TAB PO SCH ×3 (09:20→19:52)
[2021-10-29] MEDS: POLYETHYLENE GLYCOL 3350 17 GM POWD.PACK PO SCH (09:20)
[2021-10-29] MEDS: PANTOPRAZOLE 40 MG TAB DR PO SCH (09:20)
[2021-10-29] MEDS: ENOXAPARIN SODIUM 40 MG/0.4 ML SYRINGE SQ SCH (09:29)
[2021-10-29] MEDS ORDERED: AMOX-426 PO (09:37)
[2021-10-29] MEDS ORDERED: LEVO50TA4 PO (09:37)
[2021-10-29] MEDS: LACTATED RINGERS 1000ML 1,000 ML IV SCH (11:11)
[2021-10-29 11:13] VITALS: BP 152/64
[2021-10-29 17:30] VITALS: BP 177/58
[2021-10-29] MEDS: CEFTRIAXONE 1G VIAL IVP SCH (19:52)
[2021-10-29 20:00] VITALS: BP 132/55
[2021-10-30] VITALS: BP 144/58
[2021-10-30] MEDS: IPRATROPIUM/ALBUTEROL SULFATE 3 ML SOLUTION IH SCH ×5 (00:02→23:34)
[2021-10-30] MEDS: ACETAMINOPHEN WITH CODEINE 1 TAB TAB PO PRN ×3 (01:37→22:22)
[2021-10-30 04:00] VITALS: BP 168/63
[2021-10-30] MEDS: LEVOTHYROXINE 50 MCG TABLET PO SCH (06:04)
[2021-10-30 08:01] VITALS: BP 158/67
[2021-10-30] MEDS: SODIUM CHLORIDE 1,000 MG TAB PO SCH ×3 (09:27→20:19)
[2021-10-30] MEDS: CLONAZEPAM 0.5 MG TABLET PO SCH ×2 (09:27→20:19)
[2021-10-30] MEDS: POLYETHYLENE GLYCOL 3350 17 GM POWD.PACK PO SCH (09:27)
[2021-10-30] MEDS: PANTOPRAZOLE 40 MG TAB DR PO SCH (09:27)
[2021-10-30] MEDS: LISINOPRIL 20 MG TABLET PO SCH (09:27)
[2021-10-30] MEDS: AMLODIPINE 5 MG TAB PO SCH (09:27)
[2021-10-30] MEDS: ENOXAPARIN SODIUM 40 MG/0.4 ML SYRINGE SQ SCH (09:28)
[2021-10-30] MEDS: DIPHENHYDRAMINE HCL 25 MG CAPSULE PO PRN ×2 (10:25→20:19)
[2021-10-30 11:21] VITALS: BP 144/55
[2021-10-30 16:05] VITALS: BP 135/51
[2021-10-30] MEDS: LACTATED RINGERS 1000ML 1,000 ML IV SCH (18:22)
[2021-10-30 20:00] VITALS: BP 165/48
[2021-10-30] MEDS: CEFTRIAXONE 1G VIAL IVP SCH (20:19)
[2021-10-31] VITALS (8 sets, daily range): BP systolic 110–185; BP diastolic 52–67
[2021-10-31] MEDS: LEVOTHYROXINE 50 MCG TABLET PO SCH (04:15)
[2021-10-31] MEDS: ALPRAZOLAM 0.25 MG TABLET PO PRN (04:22)
[2021-10-31] MEDS: ACETAMINOPHEN 325 MG TAB PO PRN (04:23)
[2021-10-31 05:01] LABS: BASOPHILS % (AUTO) 0.5 % (0.0-5.0); EOSINOPHILS % (AUTO) 3.6 % (0.0-8.0); HEMATOCRIT 25.1 % (36-48); LYMPHOCYTES % (AUTO) 20.8 % (21.0-51.0); MEAN CORPUSCULAR HEMOGLOBIN 28.9 pg (27.0-33.0); MEAN CORPUSCULAR HGB CONC 32.3 g/dL (32.0-36.0); MEAN CORPUSCULAR VOLUME 89.6 fL (79-99); MONOCYTES % (AUTO) 12.6 % (3.0-13.0); PLATELET COUNT (AUTO) 206 K/uL (130-400); RED CELL DISTRIBUTION WIDTH 15.7 % (11.0-15.5); WHITE BLOOD COUNT (AUTO) 6.4 K/uL (4.8-10.8)
[2021-10-31 05:19] LABS: ALBUMIN 2.3 g/dL (3.5-5.0); BILIRUBIN,TOTAL 0.4 mg/dL (0.2-1.0); CREATININE 0.9 mg/dL (0.5-1.5); MAGNESIUM 1.8 mg/dL (1.80-2.40); POTASSIUM 3.9 mmol/L (3.5-5.1); TOTAL PROTEIN, SERUM 6.1 g/dL (6.0-8.3)
[2021-10-31] MEDS: IPRATROPIUM/ALBUTEROL SULFATE 3 ML SOLUTION IH SCH ×3 (06:24→18:15)
[2021-10-31] MEDS: POLYETHYLENE GLYCOL 3350 17 GM POWD.PACK PO SCH (09:26)
[2021-10-31] MEDS: SODIUM CHLORIDE 1,000 MG TAB PO SCH ×3 (09:26→20:01)
[2021-10-31] MEDS: LISINOPRIL 20 MG TABLET PO SCH (09:26)
[2021-10-31] MEDS: AMLODIPINE 5 MG TAB PO SCH (09:26)
[2021-10-31] MEDS: PANTOPRAZOLE 40 MG TAB DR PO SCH (09:26)
[2021-10-31] MEDS: CLONAZEPAM 0.5 MG TABLET PO SCH ×2 (09:26→20:01)
[2021-10-31] MEDS: ENOXAPARIN SODIUM 40 MG/0.4 ML SYRINGE SQ SCH (09:27)
[2021-10-31] MEDS: LACTATED RINGERS 1000ML 1,000 ML IV SCH (11:11)
[2021-10-31] MEDS: DIPHENHYDRAMINE HCL 25 MG CAPSULE PO PRN (13:33)
[2021-10-31] MEDS: CEFTRIAXONE 1G VIAL IVP SCH (20:01)
[2021-11-01] MEDS: IPRATROPIUM/ALBUTEROL SULFATE 3 ML SOLUTION IH SCH ×4 (00:12→18:11)
[2021-11-01 03:37] LABS: BASOPHILS % (AUTO) 0.3 % (0.0-5.0); HEMATOCRIT 24.5 % (36-48); LYMPHOCYTES % (AUTO) 21.3 % (21.0-51.0); MEAN CORPUSCULAR HEMOGLOBIN 27.8 pg (27.0-33.0); MEAN CORPUSCULAR HGB CONC 31.4 g/dL (32.0-36.0); MEAN CORPUSCULAR VOLUME 88.4 fL (79-99); MONOCYTES % (AUTO) 13.7 % (3.0-13.0); NEUTROPHILS % (AUTO) 61.2 % (40.0-77.0); PLATELET COUNT (AUTO) 200 K/uL (130-400); RED BLOOD CELL COUNT(AUTO) 2.77 MIL/uL (4.00-5.50); RED CELL DISTRIBUTION WIDTH 15.8 % (11.0-15.5); WHITE BLOOD COUNT (AUTO) 6.7 K/uL (4.8-10.8)
[2021-11-01 04:02] LABS: ALBUMIN 2.3 g/dL (3.5-5.0); BILIRUBIN,TOTAL 0.4 mg/dL (0.2-1.0); CREATININE 0.9 mg/dL (0.5-1.5); MAGNESIUM 1.7 mg/dL (1.80-2.40); POTASSIUM 3.7 mmol/L (3.5-5.1); TOTAL PROTEIN, SERUM 6.2 g/dL (6.0-8.3)
[2021-11-01 04:08] VITALS: BP 155/55
[2021-11-01] MEDS: ALPRAZOLAM 0.25 MG TABLET PO PRN (04:26)
[2021-11-01] MEDS: DIPHENHYDRAMINE HCL 25 MG CAPSULE PO PRN ×2 (04:26→11:47)
[2021-11-01] MEDS: LEVOTHYROXINE 50 MCG TABLET PO SCH (04:29)
[2021-11-01] MEDS: ACETAMINOPHEN 325 MG TAB PO PRN (04:59)
[2021-11-01 08:06] VITALS: BP 145/64
[2021-11-01] MEDS: SODIUM CHLORIDE 1,000 MG TAB PO SCH (09:43)
[2021-11-01] MEDS: POLYETHYLENE GLYCOL 3350 17 GM POWD.PACK PO SCH (09:43)
[2021-11-01] MEDS: CLONAZEPAM 0.5 MG TABLET PO SCH (09:43)
[2021-11-01] MEDS: LISINOPRIL 20 MG TABLET PO SCH (09:44)
[2021-11-01] MEDS: AMLODIPINE 5 MG TAB PO SCH (09:44)
[2021-11-01] MEDS: ENOXAPARIN SODIUM 40 MG/0.4 ML SYRINGE SQ SCH (09:44)
[2021-11-01] MEDS: PANTOPRAZOLE 40 MG TAB DR PO SCH (09:44)
[2021-11-01] MEDS: ACETAMINOPHEN WITH CODEINE 1 TAB TAB PO PRN (09:46)
[2021-11-01] MEDS: LACTATED RINGERS 1000ML 1,000 ML IV SCH (11:11)
[2021-11-01 11:22] VITALS: BP 144/57
[2021-11-01 16:19] VITALS: BP 145/68
== END 2021-11-01 20:00 | DRG 481 ==
LOC: EDH 14:16 → EDHIP 17:47 → 4BH 10-24 05:52
PROVIDERS: ADMIT Internal Medicine Critical Care Medicine; ATTEND Internal Medicine Critical Care Medicine
PROC: 0QSC04Z Reposition Left Lower Femur with Internal Fixation Device, Open Approach (ICD-10-PCS; principal; 2021-10-25 10:20)
PROC: 30233N1 Transfusion of Nonautologous Red Blood Cells into Peripheral Vein, Percutaneous Approach (ICD-10-PCS; 2021-10-26)
DX: S72.402A Unspecified fracture of lower end of left femur, initial encounter for closed fracture (principal); E87.1 Hypo-osmolality and hyponatremia; N30.00 Acute cystitis without hematuria; D64.9 Anemia, unspecified; F41.9 Anxiety disorder, unspecified; I10 Essential (primary) hypertension; Z20.822 Contact with and (suspected) exposure to COVID-19; E78.00 Pure hypercholesterolemia, unspecified; Z87.440 Personal history of urinary (tract) infections; F32.A Depression, unspecified; Z83.3 Family history of diabetes mellitus; Z82.49 Family history of ischemic heart disease and other diseases of the circulatory system; Z83.6 Family history of other diseases of the respiratory system; S05.12XA Contusion of eyeball and orbital tissues, left eye, initial encounter; W01.0XXA Fall on same level from slipping, tripping and stumbling without subsequent striking against object, initial encounter; Y93.89 Activity, other specified; Y92.091 Bathroom in other non-institutional residence as the place of occurrence of the external cause; Y99.8 Other external cause status
CPT/HCPCS: 36415; 70450; 70486; 71045; 71270; 72125; 72170; 73552; 73560; 73700; 80048; 80053; 81001; 82533; 82550; 82948; 83036; 83735; 84100; 84443; 84484; 85025; 85027; 85378; 85610; 85730; 86850; 86900; 86901; 86923; 87077; 87088; 87186; 87635; 87641; 90714; 93005; 93306; 93356; 93880; 93970; 94640; 94664; 97039; G0378; J0330; J0360; J0690; J0696; J1100; J1170; J1650; J1885; J1940; J2001; J2175; J2270; J2405; J2704; J2710; J2795; J3010; J3370; J3475; J3490; J7120; P9016; Q0163; Q9967